=== PATIENT | female | born 1995 | race Caucasian/White ===

== ENCOUNTER 2017-04-08 14:02 | Emergency (ER) | payer OTHER ==
[~2017-04-08] VITALS: Ht 165.1 cm; Wt 77.1 kg
[~2017-04-08 14:02] MED LIST: DHA100 MG PO; IRON90 MG PO; MACROBID100 M1 PO; PRENATAL1 TA3 PO
[2017-04-08] MEDS ORDERED: ANAPROX DS550 MG PO (14:26)
[2017-04-08 14:29] LABS: BILIRUBIN NEGATIVE (NEGATIVE); BLOOD 2+ (NEGATIVE); CLARITY SL CLOUDY (CLEAR); COLOR YELLOW (YELLOW); GLUCOSE NEGATIVE (NEGATIVE); KETONE TRACE (NEGATIVE); LEUKO ESTERASE NEGATIVE (NEGATIVE); NITRITE NEGATIVE (NEGATIVE); PROTEIN NEGATIVE (NEGATIVE); SPECIFIC GRAVITY 1.025 (1.005-1.030); UROBILINOGEN 0.2 E.U./dl (0.2-1.0)
[2017-04-08 14:46] LABS: BACTERIA 1+; URINE REFLEX COMMENT YES (NO)
[2017-04-08] MEDS ORDERED: MACROBID100 M1 PO (15:00)
== END 2017-04-08 15:13 | disposition home or self-care (01) ==
LOC: ED 14:02
PROVIDERS: Physician Assistant
DX: M54.5 Low back pain (principal); N30.01 Acute cystitis with hematuria; Z91.018 Allergy to other foods

== ENCOUNTER 2017-08-08 07:03 | Emergency (ER) | payer OTHER ==
[~2017-08-08] VITALS: Wt 74.8 kg
[~2017-08-08 07:03] MED LIST changes: +ANAPROX DS550 MG PO
[2017-08-08 07:51] LABS: BASO % 0.6 % (0.0-1.0); EOS # 0.1 10*3/uL (0.0-0.4); EOS % 1.7 % (1.0-4.0); HEMATOCRIT 36.6 % (37.0-47.0); HEMOGLOBIN 12.6 g/dl (12.0-16.0); LYMPH # 3.6 10*3/uL (1.3-4.4); LYMPH % 52.2 % (27.0-41.0); MEAN CELL VOLUME 90.8 fl (81.0-99.0); MEAN CORPUSCULAR HGB 31.3 pg (27.0-31.0); MEAN CORPUSCULAR HGB CONC 34.4 g/dl (33.0-37.0); MEAN PLATELET VOLUME 9.7 fl (9.6-12.3); MONO # 0.4 10*3/uL (0.1-1.0); MONO % 6.4 % (3.0-9.0); NEUT # 2.7 10*3/uL (2.3-7.9); PLATELET COUNT AUTOMATED 212 10*3/uL (130-400); RED BLOOD COUNT 4.03 10*6/uL (4.10-5.10); RED CELL DISTRI WIDTH 12.3 % (0-14.5); WHITE BLOOD COUNT 6.9 10*3/uL (4.8-10.8)
[2017-08-08 08:07] LABS: ALBUMIN 3.4 gm/dl (3.1-4.5); ALKALINE PHOSPHATASE 74 U/L (45-117); BUN 9 mg/dl (7-24); CHLORIDE 106 mmol/L (98-107); CREATININE 0.68 mg/dL (0.55-1.02); MAGNESIUM 2.3 mg/dL (1.5-2.1); POTASSIUM 3.7 mmol/L (3.5-5.1); SGOT/AST 27 IU/L (3-35); SGPT/ALT 23 U/L (12-78); SODIUM 137 mmol/L (136-145); TOTAL PROTEIN 7.5 gm/dL (6.4-8.2)
[2017-08-08 08:11] LABS: BETA-HCG, QUANT < 1.0 mIU/mL (1-3)
[2017-08-08] MEDS ORDERED: Motrin,Rufen800 MG PO (09:24)
== END 2017-08-08 09:48 | disposition home or self-care (01) ==
LOC: ED 07:03
PROVIDERS: Emergency Medicine
DX: R51 Headache (principal); R11.2 Nausea with vomiting, unspecified; Z91.018 Allergy to other foods

== ENCOUNTER 2019-11-30 16:21 | Emergency (ER) | payer OTHER ==
[~2019-11-30] VITALS: Ht 162.5 cm; Wt 56.2 kg
[~2019-11-30 16:21] MED LIST changes: +Motrin,Rufen800 MG PO
[2019-11-30] MEDS ORDERED: IBUPROFEN600 MG PO (18:49)
== END 2019-11-30 18:29 | disposition home or self-care (01) ==
LOC: ED 16:21
DX: R51 Headache (principal); R11.0 Nausea; Z79.899 Other long term (current) drug therapy; Z79.2 Long term (current) use of antibiotics

== ENCOUNTER → 2020-10-05 | Outpatient (CLI) | payer OTHER ==
[~2020-10-05] MED LIST changes: +IBUPROFEN600 MG PO
== END | disposition home or self-care (01) ==
LOC: US 13:00
PROVIDERS: ATTEND Nurse Practitioner Women's Health
DX: Z34.81 Encounter for supervision of other normal pregnancy, first trimester (principal); Z3A.11 11 weeks gestation of pregnancy

== ENCOUNTER → 2020-12-14 | Outpatient (CLI) | payer OTHER | END | disposition home or self-care (01) | LOC: US 10:00 | PROVIDERS: ATTEND Nurse Practitioner Women's Health | DX: Z34.82 Encounter for supervision of other normal pregnancy, second trimester (principal); Z3A.22 22 weeks gestation of pregnancy ==

== ENCOUNTER → 2021-03-01 | Outpatient (CLI) | payer OTHER | END | disposition home or self-care (01) | LOC: LAB 00:16 | PROVIDERS: ATTEND Nurse Practitioner Women's Health | DX: R73.09 Other abnormal glucose (principal) ==

== ENCOUNTER → 2022-07-25 | Outpatient (CLI) | payer OTHER | END | disposition home or self-care (01) | LOC: MAMMO 13:00 | PROVIDERS: ATTEND Obstetrics & Gynecology | DX: N63.20 Unspecified lump in the left breast, unspecified quadrant (principal); N64.4 Mastodynia ==

== ENCOUNTER 2024-05-19 17:44 | Emergency (ER) | payer OTHER ==
[~2024-05-19] VITALS: Ht 167.6 cm; Wt 60.3 kg
[2024-05-19 18:46] LABS: BASO % 0.4 % (0.0-1.0); EOS # 0.1 10*3/uL (0.0-0.4); EOS % 1.1 % (1.0-4.0); HEMATOCRIT 34.6 % (37.0-47.0); LYMPH # 3.7 10*3/uL (1.3-4.4); MEAN CELL VOLUME 96.4 fl (81.0-99.0); MEAN CORPUSCULAR HGB 32.6 pg (27.0-31.0); MEAN CORPUSCULAR HGB CONC 33.8 g/dl (33.0-37.0); MEAN PLATELET VOLUME 9.5 fl (9.6-12.3); MONO # 0.6 10*3/uL (0.1-1.0); MONO % 8.1 % (3.0-9.0); NEUT # 3.1 10*3/uL (2.3-7.9); NEUT % 41.1 % (47.0-73.0); PLATELET COUNT AUTOMATED 250 10*3/uL (130-400); RED BLOOD COUNT 3.59 10*6/uL (4.10-5.10); RED CELL DISTRI WIDTH 11.9 % (0-14.5); WHITE BLOOD COUNT 7.5 10*3/uL (4.8-10.8)
[2024-05-19 19:11] LABS: BUN 10 mg/dl (9-23); CHLORIDE 107 mmol/L (98-107); POTASSIUM 3.8 mmol/L (3.4-5.1)
== END 2024-05-19 20:22 | disposition home or self-care (01) ==
LOC: ED 17:44
PROVIDERS: Nurse Practitioner
DX: M79.672 Pain in left foot (principal); R60.0 Localized edema; R20.0 Anesthesia of skin; Z79.899 Other long term (current) drug therapy; Z79.2 Long term (current) use of antibiotics

== ENCOUNTER 2025-04-04 17:42 | Emergency (ER) | payer OTHER ==
[~2025-04-04] VITALS: Ht 165.1 cm; Wt 60.3 kg
[2025-04-04] MEDS ORDERED: Ketorolac Tromethamine 30 MG/ML VIAL IM ONE (18:10)
== END 2025-04-04 18:16 | disposition home or self-care (01) ==
LOC: ED 17:42
DX: S46.811A Strain of other muscles, fascia and tendons at shoulder and upper arm level, right arm, initial encounter (principal); Z79.899 Other long term (current) drug therapy; V49.49XA Driver injured in collision with other motor vehicles in traffic accident, initial encounter; Y93.89 Activity, other specified; Y92.488 Other paved roadways as the place of occurrence of the external cause; Y99.8 Other external cause status

== ENCOUNTER → 2025-04-11 | Outpatient (CLI) | payer OTHER | END | disposition home or self-care (01) | LOC: LAB 16:51 | PROVIDERS: ATTEND Specialist | DX: J30.1 Allergic rhinitis due to pollen (principal); J30.89 Other allergic rhinitis; L56.8 Other specified acute skin changes due to ultraviolet radiation ==